=== PATIENT | male | born 1980 | race African-American/Black ===

== ENCOUNTER 2019-03-12 00:53 | Emergency (ER) | payer MEDICAID ==
[~2019-03-12] VITALS: Ht 188 cm; Wt 82.0 kg
[2019-03-12] MEDS ORDERED: ACETAMINOPHEN 325MG TABLET PO ONE (01:45)
[2019-03-12] MEDS ORDERED: TETANUS, DIPHTHERIA, PERTUSSIS VAC/PF 0.5ML (>7YR OLD) IM ONE (01:45)
[2019-03-12 04:43] VITALS: BP 106/70
[2019-03-21 13:10] LABS: BARBITURATE SCREEN Negative ug/mL (Cutoff:0.1); BENZODIAZEPINE SCREEN Negative ng/mL (Cutoff:20); OPIATES SCREEN Negative ng/mL (Cutoff:5); PHENCYCLIDINE SCREEN Negative ng/mL (Cutoff:8)
== END 2019-03-12 08:15 | disposition home or self-care (01) ==
LOC: ER 00:53
DX: S00.33XA Contusion of nose, initial encounter (principal); K76.9 Liver disease, unspecified; F10.229 Alcohol dependence with intoxication, unspecified; F17.200 Nicotine dependence, unspecified, uncomplicated; Y08.89XA Assault by other specified means, initial encounter; Y93.89 Activity, other specified; Y92.89 Other specified places as the place of occurrence of the external cause; Y99.8 Other external cause status; Y90.8 Blood alcohol level of 240 mg/100 ml or more
CPT/HCPCS: 36415; 70486; 80307; 80320; 90471; 90715; 99284; G0480

== ENCOUNTER 2019-04-30 00:03 | Emergency (ER) | payer OTHER, MEDICAID ==
[~2019-04-30] VITALS: Ht 177.8 cm; Wt 92.0 kg
[2019-04-30] MEDS ORDERED: MORPHINE SULFATE 4 MG/ML CPJ (NOT FOR IM USE) IV ONE (01:00)
[2019-04-30 06:55] VITALS: BP 115/70
== END 2019-04-30 07:11 | disposition home or self-care (01) ==
LOC: ER 00:03
DX: K29.20 Alcoholic gastritis without bleeding (principal); F10.229 Alcohol dependence with intoxication, unspecified; Y90.9 Presence of alcohol in blood, level not specified
CPT/HCPCS: 36415; 80076; 80320; 83690; 96374; 99283; J2270; G0480